=== PATIENT | male | born 1975 | race Caucasian/White ===

== ENCOUNTER 2025-06-29 17:50 | Emergency (ER) | payer MEDICAID, OTHER ==
[2025-06-29] MEDS ORDERED: Take Home: Cyclobenzaprine 10 MG Tab, 4 Tab Pack PO ONE (20:24)
[2025-06-29] MEDS: Ketorolac 30 MG/ML SDV IM ONE (20:25)
== END 2025-06-29 20:28 | disposition home or self-care (01) ==
LOC: VM.ED 17:50
DX: S16.1XXA Strain of muscle, fascia and tendon at neck level, initial encounter (principal); S46.912A Strain of unspecified muscle, fascia and tendon at shoulder and upper arm level, left arm, initial encounter; V89.2XXA Person injured in unspecified motor-vehicle accident, traffic, initial encounter
CPT/HCPCS: 72125; 73030-LT; 99284